=== PATIENT | male | born 1960 | race Two or more races ===

== ENCOUNTER 2018-02-22 12:34 | Inpatient (IN) | payer MEDICARE, MEDICAID ==
[~2018-02-22] VITALS: Ht 162.6 cm; Wt 57.0 kg
[2018-02-22] MEDS ORDERED: LISI40TA PO (12:45)
[2018-02-22] MEDS ORDERED: ASPI-496 PO (12:45)
[2018-02-22] MEDS ORDERED: NITR0.4T28 SL (12:45)
[2018-02-22 12:55] LABS: BASOPHILS # (AUTO) 0.12 x10^3/uL (0-0.1); BASOPHILS % (AUTO) 1 % (0-1); EOSINOPHILS # (AUTO) 0.11 x10^3/uL (0-0.4); EOSINOPHILS % (AUTO) 1 % (1-7); LYMPHOCYTES % (AUTO) 13 % (22-44); MD NO; MEAN CORPUSCULAR HEMOGLOBIN 32.7 pg (27.5-34.5); MEAN CORPUSCULAR HGB CONC 34.6 g/dL (33.2-36.2); MEAN CORPUSCULAR VOLUME 94.3 fL (81-97); MEAN PLATELET VOLUME 7.9 fL (7.4-10.4); MONOCYTES # (AUTO) 0.88 x10^3/uL (0.2-0.8); MONOCYTES % (AUTO) 10 % (2-9); NEUTROPHILS # (AUTO) 6.25 x10^3/uL (1.8-6.8); NEUTROPHILS % (AUTO) 74 % (42-75); PLATELET COUNT 318 x10^3/uL (130-400); RED BLOOD COUNT 4.52 x10^6/uL (4.38-5.82); RED CELL DISTRIBUTION WIDTH 15.8 % (9.4-14.8)
[2018-02-22 13:02] LABS: INTERNATIONAL NORMALIZED RATIO 0.93 (0.93-1.1); PROTHROMBIN TIME 9.6 Seconds (9.6-11.5)
[2018-02-22] MEDS ORDERED: NITROGLYCERIN 5 MG/ML, 10ML ONE (13:03)
[2018-02-22] MEDS ORDERED: BIVALIRUDIN 250 MG ONE (13:03)
[2018-02-22] MEDS ORDERED: FENTANYL PF 100 MCG/2ML ONE (13:03)
[2018-02-22] MEDS ORDERED: LIDOCAINE 2%, 50ML ONE (13:03)
[2018-02-22] MEDS ORDERED: TICAGRELOR 90 MG TABLET ONE (13:03)
[2018-02-22] MEDS ORDERED: MIDAZOLAM 1 MG/ML, 5ML ONE (13:03)
[2018-02-22] MEDS ORDERED: CLOPIDOGREL 300 MG TABLET ONE (13:50)
[2018-02-22] MEDS ORDERED: BIVALIRUDIN 250 MG in DEXTROSE 5% 50 ML IV SCH (13:57)
[2018-02-22] MEDS ORDERED: ZOLPIDEM 5MG TABLET PO PRN (14:00)
[2018-02-22] MEDS ORDERED: ACETAMINOPHEN 325 MG TABLET PO PRN (14:00)
[2018-02-22] MEDS ORDERED: ONDANSETRON 2MG/ML, 2ML IVPush PRN (14:00)
[2018-02-22] MEDS: SODIUM CHLORIDE 0.9% 1,000 ML IV SCH (19:28)
[2018-02-22] MEDS ORDERED: QUETIAPINE 100MG TABLET PO SCH (21:00)
[2018-02-22] MEDS ORDERED: ENALAPRILAT 1.25 MG/ML, 2ML IV PRN (22:30)
[2018-02-22] MEDS ORDERED: ENALAPRILAT 1.25 MG/ML, 2ML ONE (22:33)
[2018-02-23] MEDS: SODIUM CHLORIDE 0.9% 1,000 ML IV SCH ×2 (01:58→06:21)
[2018-02-23 07:15] LABS: BASOPHILS # (AUTO) 0.08 x10^3/uL (0-0.1); BASOPHILS % (AUTO) 1 % (0-1); EOSINOPHILS % (AUTO) 2 % (1-7); LYMPHOCYTES # (AUTO) 0.86 x10^3/uL (1-3.4); LYMPHOCYTES % (AUTO) 10 % (22-44); MD NO; MEAN CORPUSCULAR HGB CONC 33.7 g/dL (33.2-36.2); MEAN CORPUSCULAR VOLUME 94.9 fL (81-97); MEAN PLATELET VOLUME 7.8 fL (7.4-10.4); MONOCYTES # (AUTO) 0.81 x10^3/uL (0.2-0.8); MONOCYTES % (AUTO) 10 % (2-9); NEUTROPHILS # (AUTO) 6.43 x10^3/uL (1.8-6.8); NEUTROPHILS % (AUTO) 77 % (42-75); PLATELET COUNT 301 x10^3/uL (130-400); RED BLOOD COUNT 4.52 x10^6/uL (4.38-5.82); RED CELL DISTRIBUTION WIDTH 15.6 % (9.4-14.8)
[2018-02-23 07:16] LABS: ANION GAP 7 mmol/L (5-15); CALCIUM 8.1 mg/dL (8.5-10.1); CHLORIDE 108 mmol/L (98-107); CHOLESTEROL, TOTAL 157 mg/dL (140-239); CREATININE 0.96 mg/dL (0.7-1.3); TRIGLYCERIDES 100 mg/dL (50-200); VLDL CHOLESTEROL 20 mg/dL (0-25)
[2018-02-23 07:18] LABS: CHOL/HDL RATIO 3.1; HDL CHOL % 32 % (26-37); HDL CHOLESTEROL (DIRECT) 51 mg/dL (40-60); LDL CHOLESTEROL,CALCULATED 86 mg/dL (54-169); LDL/HDL RATIO 1.7 (0.5-3.0)
[2018-02-23] MEDS: CLOPIDOGREL 75 MG TABLET PO SCH (08:07)
[2018-02-23] MEDS ORDERED: METF10003 PO (08:43)
[2018-02-23] MEDS ORDERED: QUETIAPINE 100MG TABLET PO SCH ×2 (09:00→21:00)
[2018-02-23] MEDS ORDERED: QUET300T5 PO (13:31)
[2018-02-23] MEDS ORDERED: EMPA10TA PO (13:31)
[2018-02-23] MEDS ORDERED: QUET100T4 PO (13:31)
[2018-02-23] MEDS ORDERED: ASPI-496 PO (13:31)
[2018-02-23] MEDS ORDERED: NITROGLYCERIN 0.4 MG BOTTLE (25 TABS) SL PRN (14:30)
[2018-02-23] MEDS ORDERED: ASPIRIN 300 MG SUPP PR ONE (14:30)
[2018-02-23 15:21] VITALS: BP 146/96
[2018-02-23] MEDS: metFORMIN 500 MG TABLET PO SCH (16:24)
[2018-02-23] MEDS: ASPIRIN 81 MG TABLET CHEW PO SCH (16:50)
[2018-02-23 20:00] VITALS: BP 144/88
[2018-02-23] MEDS: QUETIAPINE 100MG TABLET PO SCH (20:13)
[2018-02-23] MEDS ORDERED: SIMVASTATIN 40 MG TABLET PO SCH (21:00)
[2018-02-24 00:58] VITALS: BP 148/89
[2018-02-24 06:25] LABS: ALANINE AMINOTRANSFERASE 26 U/L (12-78); ALBUMIN 2.9 g/dL (3.4-5.0); ANION GAP 6 mmol/L (5-15); CALCIUM 8.3 mg/dL (8.5-10.1); CHLORIDE 107 mmol/L (98-107)
[2018-02-24 06:28] LABS: ALKALINE PHOSPHATASE 97 U/L (45-117); BILIRUBIN,TOTAL 0.2 mg/dL (0.2-1.0); TOTAL PROTEIN 6.2 g/dL (6.4-8.2)
[2018-02-24 08:00] VITALS: BP 162/93
[2018-02-24] MEDS: metFORMIN 500 MG TABLET PO SCH (08:26)
[2018-02-24] MEDS: ASPIRIN 81 MG TABLET CHEW PO SCH (08:26)
[2018-02-24] MEDS: CLOPIDOGREL 75 MG TABLET PO SCH (08:27)
[2018-02-24] MEDS: QUETIAPINE 100MG TABLET PO SCH (08:35)
[2018-02-24] MEDS ORDERED: ASPIRIN 81 MG TABLET CHEW PO SCH (09:00)
[2018-02-24] MEDS ORDERED: METOPROLOL TARTRATE 25 MG TABLET PO SCH (09:00)
[2018-02-24] MEDS ORDERED: LISINOPRIL 20 MG TABLET PO SCH (09:00)
== END 2018-02-24 09:50 | disposition left against medical advice (07) | DRG 246 ==
LOC: ED 12:45 → EDIP 13:34 → CSU 14:34 → 5SO 02-23 14:53
PROVIDERS: ADMIT Internal Medicine; ATTEND Internal Medicine
PROC: 027034Z Dilation of Coronary Artery, One Artery with Drug-eluting Intraluminal Device, Percutaneous Approach (ICD-10-PCS; principal; 2018-02-22)
PROC: 02703ZZ Dilation of Coronary Artery, One Artery, Percutaneous Approach (ICD-10-PCS; 2018-02-22)
PROC: 4A023N7 Measurement of Cardiac Sampling and Pressure, Left Heart, Percutaneous Approach (ICD-10-PCS; 2018-02-22)
PROC: B2111ZZ Fluoroscopy of Multiple Coronary Arteries using Low Osmolar Contrast (ICD-10-PCS; 2018-02-22)
PROC: B2151ZZ Fluoroscopy of Left Heart using Low Osmolar Contrast (ICD-10-PCS; 2018-02-22)
DX: I21.29 ST elevation (STEMI) myocardial infarction involving other sites (principal); I50.33 Acute on chronic diastolic (congestive) heart failure; J44.9 Chronic obstructive pulmonary disease, unspecified; E11.9 Type 2 diabetes mellitus without complications; E78.5 Hyperlipidemia, unspecified; E87.6 Hypokalemia; F17.210 Nicotine dependence, cigarettes, uncomplicated; I11.9 Hypertensive heart disease without heart failure; I25.10 Atherosclerotic heart disease of native coronary artery without angina pectoris; I21.19 ST elevation (STEMI) myocardial infarction involving other coronary artery of inferior wall; I25.2 Old myocardial infarction; Z91.14 Patient's other noncompliance with medication regimen; Z79.899 Other long term (current) drug therapy; Z79.82 Long term (current) use of aspirin
CPT/HCPCS: 0399T; 36415; 71045; 80047; 80048; 80053; 80061; 82040; 84484; 85025; 85610; 85730; 87081; 93005; 93306; 93458; 99156; 99157; C1760; C1769; C1894; J0583; J2250; J3010; C1725; C1874; C1887; Q9967

== ENCOUNTER 2018-09-11 15:46 | Emergency (ER) | payer MEDICARE, MEDICAID ==
[~2018-09-11] VITALS: Ht 162.6 cm; Wt 58.6 kg
[~2018-09-11 15:46] MED LIST: ASPI-496 PO; EMPA10TA PO; LISI40TA PO; METF10007 PO; NITR0.4T28 SL; QUET100T4 PO; QUET300T5 PO
[2018-09-11 16:23] LABS: BASOPHILS # (AUTO) 0.04 x10^3/uL (0-0.1); BASOPHILS % (AUTO) 0 % (0-1); EOSINOPHILS # (AUTO) 0.26 x10^3/uL (0-0.4); EOSINOPHILS % (AUTO) 3 % (1-7); LYMPHOCYTES # (AUTO) 0.77 x10^3/uL (1-3.4); LYMPHOCYTES % (AUTO) 8 % (22-44); MD NO; MEAN CORPUSCULAR HEMOGLOBIN 27.8 pg (27.5-34.5); MEAN CORPUSCULAR HGB CONC 31.9 g/dL (33.2-36.2); MEAN PLATELET VOLUME 7.2 fL (7.4-10.4); MONOCYTES # (AUTO) 0.93 x10^3/uL (0.2-0.8); MONOCYTES % (AUTO) 10 % (2-9); NEUTROPHILS # (AUTO) 7.79 x10^3/uL (1.8-6.8); NEUTROPHILS % (AUTO) 80 % (42-75); PLATELET COUNT 374 x10^3/uL (130-400); RED CELL DISTRIBUTION WIDTH 18.1 % (9.4-14.8)
--- NOTE | 2018-09-11 16:24 | NUR ---
pt presents to ED with SI, plan to jump off building. pt placed in gown, provided with warm blanket. placed in secure room. all belongings and clothing bagged, placed in locked cabinet. pt instructed to provide urine sample, urinal at bedside. pt verbalizes understanding. pt calm and cooperative at this time.
[2018-09-11 16:31] LABS: ALANINE AMINOTRANSFERASE 26 U/L (12-78); ALBUMIN 3.5 g/dL (3.4-5.0); ANION GAP 5 mmol/L (5-15); CALCIUM 8.2 mg/dL (8.5-10.1); CHLORIDE 100 mmol/L (98-107)
[2018-09-11 16:34] LABS: ACETAMINOPHEN < 2 mcg/mL (10-30); ALKALINE PHOSPHATASE 116 U/L (45-117); BILIRUBIN,TOTAL 0.7 mg/dL (0.2-1.0); CREATININE 1.18 mg/dL (0.7-1.3); SALICYLATE LEVEL 4.9 mg/dL (2.8-20.0)
--- NOTE | 2018-09-11 16:42 | NUR ---
EVELINE Uriarte at bedside. during RN's assessment, pt reports he has had chest pain x 5 days, this was not mentioned in triage. pain level 6/10, sternal and sharp. pt reports stress exacerbates pain, reports associated sign of dizziness but denies other associated sx. EVELINE Uriarte aware.
--- NOTE | 2018-09-11 16:50 | NUR ---
all monitors in place, pt is NSR on cardiac montior. EKG was taken in triage, reviewed by ERP.
--- NOTE | 2018-09-11 17:05 | NUR ---
urinal at bedside, pt prompted to provide urine sample when able.
--- NOTE | 2018-09-11 17:25 | NUR ---
pt moved to room 40, report to ELMO Amaya
--- NOTE | 2018-09-11 17:30 | NUR ---
ASSUMED CARE OF PT.
--- NOTE | 2018-09-11 18:04 | NUR ---
PT READY FOR DISCHARGE. 4 BELONGINGS BAGS RETURNED TO PT
[2018-09-11 18:19] VITALS: BP 147/90
== END 2018-09-11 18:21 | disposition home or self-care (01) ==
LOC: ED 17:01
DX: F33.1 Major depressive disorder, recurrent, moderate (principal); I25.2 Old myocardial infarction; I10 Essential (primary) hypertension; E11.9 Type 2 diabetes mellitus without complications; Z72.9 Problem related to lifestyle, unspecified
CPT/HCPCS: 36415; 80053; 80307; 80329; 85025; 93005; 99284; G0480